=== PATIENT | female | born 1995 | race Caucasian/White ===

== ENCOUNTER 2018-09-14 06:16 | Emergency (ER) | payer OTHER ==
[~2018-09-14] VITALS: Ht 147.3 cm; Wt 63.3 kg
[~2018-09-14 06:16] MED LIST: CIPR500T4 PO; IBUP-1542 PO; NITR-58 PO
[2018-09-14 06:18] VITALS: BP 124/63; PULSE 89; RESP 18; Ht 147.3 cm; Wt 63.3 kg
[2018-09-14] MEDS ORDERED: ONDANSETRON 4 MG INJ IM STA ×2 (06:30→06:46)
--- NOTE | 2018-09-14 06:37 | ERD ---
ER Documentation Chief Complaint Chief Complaint AP WITH N/V XSTARTED TODAY @0200 HPI Patient is a 22 years old Female with no known PMHx presenting to the clinic for abdominal bloating/pain, nausea, and NBNB emesis since yesterday. Patient reports abdominal pain/bloating started around 2PM after eating quesadilla for lunch at a friends house. Patient admits to mild fever, chills, and night sweats. Patient denies dehydration reports small spit size yellow emesis. Patient admits to 3 episodes since onset of symptoms. Patient denies all other ROS. Patient denies taking any OTC medication. ROS All systems reviewed and are negative except as per history of present illness. Medications Home Meds Active Scripts Simethicone (GAS RELIEF) 80 Mg Tab.chew, 80 MG PO BID WITH MEALS for 7 Days, TAB.CHEW Prov:ELIUD IVEY PA-C 09/14/18 Ondansetron Hcl* (Zofran*) 4 Mg Tablet, 4 MG PO Q8H PRN for NAUSEA AND/OR VOMITING, #30 TAB Prov:ELIUD IVEY PA-C 09/14/18 Ciprofloxacin Hcl* (Ciprofloxacin Hcl*) 500 Mg Tablet, 500 MG PO BID for 7 Days, TAB Prov:MARSHA SMITH PA-C 01/04/16 Ibuprofen* (Motrin*) 600 Mg Tab, 600 MG PO Q6, #30 TAB Prov:TRAVIS BARNES 12/31/15 Nitrofurantoin Monohyd Macrocr* (Macrobid*) 100 Mg Capsr, 100 MG PO BID for 7 Days, CAP Prov:TRAVIS BARNES 12/31/15 Allergies Allergies: Coded Allergies: No Known Allergy (Unverified , 12/30/15) PMhx/Soc Medical and Surgical Hx: pt denies Medical Hx, pt denies Surgical Hx History of Surgery: No Anesthesia Reaction: No Hx Neurological Disorder: No Hx Respiratory Disorders: No Hx Cardiac Disorders: No Hx Psychiatric Problems: No Hx Miscellaneous Medical Probl: No Hx Alcohol Use: No Hx Substance Use: No Hx Tobacco Use: No Smoking Status: Never smoker Physical Exam Vitals Vital Signs Date Temp Pulse Resp B/P (MAP) Pulse Ox O2 O2 Flow FiO2 Time Delivery Rate 09/14/18 99.1 89 18 124/63 97 06:18 (83) Physical Exam Const: No acute distress Head: Atraumatic Eyes: Normal Conjunctiva Resp: Clear to auscultation bilaterally Cardio: Regular rate and rhythm, no murmurs Abd: Soft, non tender, non distended. Normal bowel sounds. Negative Mayfield sign, negative Rovsing sign, negative McBurney's point tenderness, negative rebound tenderness, negative flank tenderness. Skin: No petechiae or rashes. Back: No midline or flank tenderness. No CVAT. Neur: Awake and alert Psych: Normal Mood and Affect Result Diagram: 09/14/18 0644 09/14/1844 Results 24 hrs Laboratory Tests Test 09/14/18 06:44 09/14/18 06:45 White Blood Count 17.1 10^3/ul Red Blood Count 4.78 10^6/ul Hemoglobin 13.1 g/dl Hematocrit 40.2 % Mean Corpuscular Volume 84.1 fl Mean Corpuscular Hemoglobin 27.4 pg Mean Corpuscular Hemoglobin Concent 32.6 g/dl Red Cell Distribution Width 14.2 % Platelet Count 404 10^3/UL Mean Platelet Volume 10.4 fl Immature Granulocytes % 0.400 % Neutrophils % 84.6 % Lymphocytes % 9.1 % Monocytes % 5.3 % Eosinophils % 0.2 % Basophils % 0.4 % Nucleated Red Blood Cells % 0.0 /100WBC Immature Granulocytes # 0.060 10^3/ul Neutrophils # 14.4 10^3/ul Lymphocytes # 1.6 10^3/ul Monocytes # 0.9 10^3/ul Eosinophils # 0.0 10^3/ul Basophils # 0.1 10^3/ul Nucleated Red Blood Cells # 0.0 10^3/ul Urine Color YELLOW Urine Clarity CLOUDY Urine pH 5.0 Urine Specific [place] 1.034 Urine Ketones 1+ mg/dL Urine Nitrite NEGATIVE mg/dL Urine Bilirubin NEGATIVE mg/dL Urine Urobilinogen NEGATIVE mg/dL Urine Leukocyte Esterase NEGATIVE L[place]/ul Urine Microscopic RBC 2 /HPF Urine Microscopic WBC 3 /HPF Urine Squamous Epithelial Cells FEW /HPF Urine Mucus FEW /HPF Urine Hemoglobin NEGATIVE mg/dL Urine Glucose NEGATIVE mg/dL Urine Total Protein NEGATIVE mg/dl Sodium Level 140 mmol/L Potassium Level 4.0 mmol/L Chloride Level 103 mmol/L Carbon Dioxide Level 23 mmol/L Anion Gap 14 Blood Urea Nitrogen 16 mg/dl Creatinine 0.77 mg/dl Est Glomerular Filtrat Rate mL/min > 60 mL/min Glucose Level 107 mg/dl Calcium Level 9.6 mg/dl Total Bilirubin 0.7 mg/dl Direct Bilirubin 0.00 mg/dl Indirect Bilirubin 0.7 mg/dl Aspartate Amino Transf (AST/SGOT) 24 IU/L Alanine Aminotransferase (ALT/SGPT) 26 IU/L Alkaline Phosphatase 78 IU/L Total Protein 8.7 g/dl Albumin 4.9 g/dl Globulin 3.80 g/dl Albumin/Globulin Ratio 1.28 Lipase 67 U/L POC Beta HCG, Qualitative NEGATIVE Current Medications Medications Dose Sig/Vida Start Time Status Last (Trade) Ordered Route PRN Stop Time Admin Dose Reason Admin Ondansetron 8 mg ONCE STAT 09/14/18 DC HCl (Zofran IM 06:30 Inj) 09/14/18 06:48 Simethicone 160 mg ONCE ONCE 09/14/18 DC 09/14/18 (Mylicon) PO 06:30 06:44 09/14/18 06:34 Ondansetron 4 mg ONCE STAT 09/14/18 DC 09/14/18 HCl (Zofran IM 06:46 06:49 Inj) 09/14/18 06:48 Procedures/MDM Patient was seen and evaluated for Abdominal pain/bloating. Patient's CBC, CMP, Lipase, Urinalysis are unremarkable aside from leukocytosis. Patient has marked improvement with Zofran IM and Simethicone. Patient has an unremarkable physical exam and no further workup/imaging needed for today's visit. Low suspicion for sepsis, colitis, appendicitis, cholecystitis, pancreatitis. Patient denied IV fluids in hospital. Patient is most likely experiencing food poisoning that doesn't warrant antibiotic treatment. Patient is stable and ready for discharge. Patient was advised to f/u in 24 hours for abdominal exam evaluation. Departure Diagnosis: Primary Impression: Abdominal pain Abdominal location: generalized Qualified Codes: R10.84 - Generalized abdominal pain Condition: Stable Patient Instructions: Abdominal Pain Referrals: [facility] Additional Instructions: F/U in 24 hours for abdominal exam evaluation. Patient advised to return to the ED immediately for new or worsening symptoms. Patient advised to follow up with primary care provider in the next 24-48 hours. Patient verbalized understanding and agrees with treatment plan and course of action. If patient has no primary care they may follow up with [facility] [address] [place] [address] [address] [facility] [address] [place] [address] or [facility] [address] [place] [address] ELIUD IVEY PA-C Sep 14, 2018 06:37
[2018-09-14] MEDS ORDERED: SIME80TA53 PO (07:36)
[2018-09-14] MEDS ORDERED: ONDA4TAB8 PO (07:36)
== END 2018-09-14 07:58 | disposition home or self-care (01) ==
LOC: FTE 06:16
DX: R10.84 Generalized abdominal pain (principal); R11.2 Nausea with vomiting, unspecified
CPT/HCPCS: 80053; 81001; 81025; 83690; 85025; J2405; Z7610; 96372